=== PATIENT | female | born 1950 | race Two or more races ===

== ENCOUNTER 2024-07-03 10:51 | Emergency (ER) | payer OTHER, SELFPAY ==
[2024-07-03 10:54] VITALS: BP 129/93
--- NOTE | 2024-07-03 11:20 | ED.GENMED ---
History of Present Illness
General
Chief Complaint: Fall
Source: patient
Exam Limitations: none
Time Seen by Provider: 07/03/24 11:09
Nursing documentation reviewed up to this point in time: agreed with
History of Present Illness
History of Present Illness:
74 yr old female presents to the ER for evaluation of head injury. Patient reports yesterday she was walking and fell hitting her head in the bathroom. She was rushing which is what she believes led to her fall. She denies loss of consciousness.
She is on aspirin only no other blood thinners. She complains of small abrasion to her head. She denies any headache nausea vomiting complaints she got concerned and wanted to be evaluated. She denies any neck pain .
Review of Systems
Review of Systems
Allergies reviewed?: Yes
All Other Systems: ROS reviewed and negative except as documented in HPI and ROS
Constitutional: Reports no symptoms; Denies fever, fatigue or chills
ABD/GI: Reports no symptoms; Denies nausea or vomiting
Musculoskeletal: Reports no symptoms
Skin: Reports no symptoms
Neurological: Reports no symptoms; Denies dizzy or headache
Psychiatric: Reports no symptoms
Phy Exam
General Physical Exam
General Presentation: no apparent distress
General age: appears stated age
General Skin: warm and dry
General Habitus: normal
General Mental: alert
General Hydration: appears well hydrated
Neurological Exam
Neurological Exam: alert and oriented x3
Musculoskeletal Exam
Musculoskeletal Exam: full ROM and other (full rom all extremities )
Skin Exam
Skin Exam: normal color, warm/dry and other (+ abrasion to left posterior occiput no hematoma )
Psychiatric Exam
Psychiatric Exam: normal mood/affect
Course
Orders/Labs/Results
Orders:
Orders
07/03/24 11:23
CT Cervical Spine W/o Iv Contr Urgent
Comment:
Reason For Exam: trauma
CT Head W/o Iv Contrast Urgent
Comment:
Reason For Exam: trauma
07/03/24 12:40
Tetanus/Diphth/Acelpertussis [Adacel] 0.5 ml IM .ONCE ONE
Vital Signs
Initial and Last Documented VS:
Initial Vital Signs
Temp Pulse Resp BP Pulse Ox
97.7 F 84 16 129/93 97
07/03/24 10:54 07/03/24 10:54 07/03/24 10:54 07/03/24 10:54 07/03/24 10:54
Last Documented Vital Signs
Temp Pulse Resp BP Pulse Ox
97.7 F 84 16 129/93 97
07/03/24 10:54 07/03/24 10:54 07/03/24 10:54 07/03/24 10:54 07/03/24 10:54
MDM/Problems Addressed
MDM/Problems Addressed:
Patient is a 74-year-old female who presented to the ER for evaluation of head injury yesterday. Patient hit her head in the bathroom she reports she was rushing which caused her to fall. No loss of consciousness aspirin only no other blood
thinner small abrasion to the back of the head. CT head and cervical spine are negative. Incidental thyroid lobe nodule found on ultrasound reviewed with patient the importance of outpatient thyroid ultrasound.
*Radiology
Radiology exam reviewed: radiology read reviewed
*Pulse Oximetry
Patient hypoxic: no
*Critical Care Note
Total Time (30-74mins, 75-104mins- exclusive of procedures): Not Applicable
ED Attending Note
-
Portions of this chart may have been created with voice recognition software.� Occasional wrong word or��sound alike� substitutions may have occurred due to the inherent limitations of voice recognition software.
Discharge Plan
Departure
Patient Disposition: Home (Routine Discharge)
Date of Disposition: 07/03/24
Time of Disposition: 12:41
Patient with high blood pressure during this ER visit?: Yes
Condition: Fair
Covid-19: Not Applicable
Discharge Problem:
Abrasion, Head injury
Instructions: Head Injury in Adults (DC), Abrasions - ED discharge instructions, BLOOD PRESSURE
Activity Restrictions/Additional Instructions:
As discussed your CAT scans were negative for acute traumatic injury. Incidentally there was a thyroid nodule found and as discussed it is recommended that you closely follow-up with family doctor for further reevaluation have an outpatient
ultrasound.
You were updated on tetanus.
Interventions
Interventions:
*Risk Screen - Suicide Last Done: 07/03/24 10:54
*General Assessment Last Done: 07/03/24 10:54
*Neglect/Abuse Screening Last Done: 07/03/24 10:54
*ED COVID-19 Vaccine History Last Done: 07/03/24 10:59
*Nursing Disposition Last Done: 07/03/24 13:06
ED-Musculoskeletal Assessment Last Done: 07/03/24 10:59
ED- Neurological Assessment Last Done: 07/03/24 10:59
ED-Skin Assessment Last Done: 07/03/24 10:59
Discharge Date and Time
Discharge Date/Time: 07/03/24 13:06
Print Language: MAORI
[2024-07-03] MEDS: ADACEL 0.5 ML IM (12:48)
== END 2024-07-03 13:06 | disposition home or self-care (01) ==
LOC: EMR 10:51
PROVIDERS: EMERGENCY PHYSICIAN Student in an Organized Health Care Education/Training Program; FAMILY PHYSICIAN Family Medicine
DX: S00.91XA Abrasion of unspecified part of head, initial encounter (principal); W19.XXXA Unspecified fall, initial encounter; E04.1 Nontoxic single thyroid nodule; Z79.82 Long term (current) use of aspirin; Z23 Encounter for immunization
CPT/HCPCS: 90471; 99284; 70450; 72125; 90715

== ENCOUNTER → 2024-07-24 07:38 | Outpatient (REF) | payer MEDICARE, SELFPAY | LOC: RAD 07:38 | PROVIDERS: ATTENDING PHYSICIAN Family Medicine | DX: E04.1 Nontoxic single thyroid nodule (principal) | CPT/HCPCS: 76536 ==